=== PATIENT | male | born 2000 | race African-American/Black ===

== ENCOUNTER 2025-06-29 01:08 | Emergency (ER) | payer MEDICAID, SELFPAY ==
[2025-06-29] MEDS ORDERED: Ibuprofen 200 MG TAB ONE (02:29)
[2025-06-29] MEDS ORDERED: Dexamethasone 10 MG/ML VIAL ONE (02:29)
[2025-06-29] MEDS ORDERED: Acetaminophen 500 MG TAB ONE (02:29)
== END 2025-06-29 02:32 | disposition home or self-care (01) ==
LOC: ERS 01:08
DX: J02.9 Acute pharyngitis, unspecified (principal); F17.290 Nicotine dependence, other tobacco product, uncomplicated
CPT/HCPCS: 87081; 87430; 99283; J1100